=== PATIENT | female | born 1990 | race Hispanic/Latino ===

== ENCOUNTER 2024-07-05 10:59 | Emergency (ER) | payer SELFPAY ==
[~2024-07-05] VITALS: Ht 157.5 cm; Wt 73.0 kg
[2024-07-05 11:15] VITALS: PULSE 86; RESP 18; TEMP 97.7
[2024-07-05] MEDS ORDERED: PYRIDIUM100 MG PO (11:21)
[2024-07-05] MEDS ORDERED: ONDANSETRON ODT4 MG PO (11:21)
[2024-07-05] MEDS ORDERED: IBUPROFEN200 MG PO (11:21)
[2024-07-05] MEDS ORDERED: CEFDINIR300 MG PO (11:21)
[2024-07-05 11:29] VITALS: BP 106/69; RESP 18; TEMP 97.7; O2SAT 100
== END 2024-07-05 11:29 | disposition home or self-care (01) ==
LOC: FSED 11:07
DX: R30.0 Dysuria (principal); N39.0 Urinary tract infection, site not specified; R11.0 Nausea
CPT/HCPCS: 99283